=== PATIENT | female | born 1975 | race Caucasian/White ===

== ENCOUNTER 2018-05-29 17:26 | Emergency (ER) | payer OTHER ==
[2018-05-29 17:26] VITALS: BMI 30.9
[2018-05-29 18:28] VITALS: O2SAT 99
--- NOTE | 2018-05-29 19:03 | ED PDOC ---
HPI: Skin/Bite Injury Time Seen by Provider: 05/29/18 18:30 Chief Complaint (Nursing): Abnormal Skin Integrity Chief Complaint (Provider): Abnormal Skin Integrity History Per: Patient, Telemedicine Physician (son - requested by patient instead of VOYCE) History/Exam Limitations: no limitations Onset/Duration Of Symptoms: Days (x 1 month) Current Symptoms Are (Timing): Still Present Quality Of Symptoms: Itching Additional Complaint(s): 42 year old female with no known medical history presents to the ED for skin irritation and itchiness on her right cheek for the last month. Patient was treated at [facility] one month ago for shingles. The provider there gave her medicine that improved symptoms, however since rash resolved, she has had a patch of dry, itchy skin to the affected area. She has since been applying Vaseline and antibiotic ointment without relief. Patient also reports she is currently being treated for a dental infection that she is taking Clindamycin for after also finishing a course of Keflex in April. Offers no other physical complaints. PMD: none provided Past Medical History Reviewed: Historical Data, Nursing Documentation, Vital Signs Vital Signs: Last Vital Signs Temp 97.6 F 05/29/18 18:21 Pulse 62 05/29/18 18:21 Resp 19 05/29/18 18:21 BP 159/81 H 05/29/18 18:21 Pulse Ox 99 05/29/18 18:21 - Medical History PMH: No Chronic Diseases - Surgical History Surgical History: No Surg Hx - Family History Family History: States: Unknown Family Hx - Home Medications Home Medications: Ambulatory Orders Medication Instructions Recorded Sulfamethoxazole/Trimethoprim 1 tab PO BID #14 tab 01/04/18 [Bactrim DS 800 mg-160 mg] Zinc Oxide 1 appl TOP PRN PRN 01/04/18 Colloidal Oatmeal [Aveeno 1 applic TOP BID PRN #1 bottle 05/29/18 Moisturizing Cream] DiphenhydrAMINE [Benadryl] 25 mg PO Q6 PRN #20 cap 05/29/18 - Allergies Allergies/Adverse Reactions: Allergies Allergy/AdvReac Type Severity Reaction Status Date / Time No Known Allergies Allergy Verified 01/04/18 10:00 Review of Systems ROS Statement: Except As Marked, All Systems Reviewed And Found Negative ENT: Positive for: Other (skin itchiness and irritation) Physical Exam - Reviewed Nursing Documentation Reviewed: Yes Vital Signs Reviewed: Yes - Physical Exam Comments: GENERAL APPEARANCE: Patient is awake, alert, oriented x 3, in no acute distress. SKIN: (+) dry dermatitis to the right facial cheek (+) faint erythema (-) warmth (-) excoriations, (-) drainage, (-) crusting (-) evidence of cellulitis HENT: (-) conjunctival injection, (-) chemosis. Oropharynx: clear (-) tongue or lip swelling, (-) tonsillar exudates, (-) erythema. Airway: patent (-) stridor, (-) hoarseness. Mucous membranes moist. Nares: Patent (-) rhinorrhea. NECK: Supple, FROM (-) lymphadenopathy, (-) tenderness. CARDIOVASCULAR: Normal rate and rhythm CHEST: (-) rales, (-) wheezing, (-) dyspnea, (-) stridor. Breath sounds equal bilaterally. Respirations even and nonlabored. NEURO: Mental status as above; Gait: steady. Speech: clear. (-) facial asymmetry - ECG O2 Sat by Pulse Oximetry: 99 (RA) Pulse Ox Interpretation: Normal Medical Decision Making Medical Decision Makin:35 Clinical Impression: dry skin dermatitis Plan: No further action required in the ED at this time. Patient was advised to use a moisturizer instead of the antibiotic cream as there are no signs of infection. Vitals stable. Return precautions provided. Repeat BP: 135/80 Based on history, exam and diagnostic results, plan will be for outpatient follow up. Patient instructed to follow-up with pmd / referral provided / the clinic in 1- 2 days without fail. Advised to take medication as prescribed. Return to the emergency room at any time for any new or worsening symptoms. Patient states she fully agrees with and understands discharge instructions. States that she agrees with the plan and disposition. Verbalized and repeated discharge instructions and plan. I have given the patient opportunity to ask any additional questions. Scribe Attestation: Documented by Latonia Garcia, acting as a scribe for Lyndsey Luna PA-C Provider Scribe Attestation: All medical record entries made by the Scribe were at my direction and personally dictated by me. I have reviewed the chart and agree that the record accurately reflects my personal performance of the history, physical exam, medical decision making, and the department course for this patient. I have also personally directed, reviewed, and agree with the discharge instructions and disposition. Disposition - Clinical Impression Clinical Impression: Dry skin dermatitis - Patient ED Disposition Is Patient to be Admitted: No Counseled Patient/Family Regarding: Studies Performed, Diagnosis, Need For Followup, Rx Given - Disposition Referrals: [facility] [Outside] Disposition: Routine/Home Disposition Time: 18:55 Condition: STABLE Additional Instructions: La atencin mdica de emergencia que recibi hoy se dirigi a pee sntomas agudos. Si le recetaron algn medicamento, llnelo y tmelo segn las indicaciones. Los sntomas pueden tardar varios velazquez en resolverse. Regrese al Departamento de Emergencias si pee sntomas empeoran, no mejoran o si tiene otros problemas. Comunquese con cruz mdico dentro de 2 velazquez para isabela nueva evaluacin y agueda un s eguimiento o llame a emily de los mdicos / clnicas a los que swan sido referido y que figuran en el formulario de Informacin de visita al paciente que se incluye en cruz paquete de dahiana. Lleve todos los documentos que le entregaron al momento del dahiana junto con todos los medicamentos que est tomando para cruz visita de seguimiento. Nuestro tratamiento no puede reemplazar la atencin mdica continua por parte de un proveedor de atencin primaria (PCP) fuera del departamento de emergencias. Prescriptions: Colloidal Oatmeal [Aveeno Moisturizing Cream] 1 applic TOP BID PRN #1 bottle PRN Reason: skin irritation DiphenhydrAMINE [Benadryl] 25 mg PO Q6 PRN #20 cap PRN Reason: Itching / Pruritus Instructions: Skin Rash, Itchy Skin Forms: [id number] (Kinyarwanda) Print Language: SAO TOMEAN - POA Present On Arrival: None
[2018-05-29 19:16] VITALS: BP 135/80; PULSE 80; RESP 18; TEMP 98.8
== END 2018-05-29 19:12 | disposition home or self-care (01) ==
LOC: H.ER 17:26
DX: L85.3 Xerosis cutis (principal)